=== PATIENT | female | born 1980 | race Caucasian/White ===

== ENCOUNTER 2025-08-15 10:17 | Emergency (ER) | payer SELFPAY ==
[~2025-08-15] VITALS: Ht 154.9 cm; Wt 71.7 kg
[2025-08-15 10:31] VITALS: TEMP 97.9
[2025-08-15 11:00] VITALS: BP 151/84; O2SAT 100
== END 2025-08-15 11:01 | disposition home or self-care (01) ==
LOC: ER 10:20
DX: S13.4XXA Sprain of ligaments of cervical spine, initial encounter (principal); V89.2XXA Person injured in unspecified motor-vehicle accident, traffic, initial encounter; Y93.89 Activity, other specified; Y92.410 Unspecified street and highway as the place of occurrence of the external cause; Y99.9 Unspecified external cause status